=== PATIENT | male | born 1975 | race Caucasian/White ===

== ENCOUNTER 2017-12-28 13:18 | Emergency (ER) | payer OTHER ==
[2017-12-28 16:52] LABS: ADD MAN DIFF? NO
[2017-12-28 16:54] LABS: WHITE BLOOD COUNT 8.4 10^3/ul (4.8-10.8)
[2017-12-28 16:54] LABS: BASOPHILS % 0.4 % (0.0-2.0); EOSINOPHILS # 0.2 10^3/ul (0.0-0.5); HEMATOCRIT 44.6 % (42.0-52.0); HEMOGLOBIN 15.6 g/dl (14.0-18.0); LYMPHOCYTES # 3.4 10^3/ul (0.8-2.9); LYMPHOCYTES % 40.4 % (15.0-51.0); MEAN CORPUSCULAR HEMOGLOBIN 30.4 pg (29.0-33.0); MEAN CORPUSCULAR VOLUME 86.9 fl (82.0-101.0); MEAN PLATELET VOLUME 11.2 fl (7.4-10.4); MONOCYTE # 0.8 10^3/ul (0.3-0.9); MONOCYTES % 9.9 % (0.0-11.0); NEUTROPHIL # 3.9 10^3/ul (1.6-7.5); NEUTROPHILS % 46.9 % (39.0-77.0); PLATELET COUNT 233 10^3/UL (140-415); RED BLOOD COUNT 5.13 10^6/ul (4.70-6.10); RED CELL DISTRIBUTION WIDTH 12.4 % (11.5-14.5)
[2017-12-28] MEDS: SOD CHLORIDE 0.9% 500 ML IV (17:04)
[2017-12-28] MEDS: KETOROLAC 15 MG INJ IV (17:04)
[2017-12-28] MEDS: LORAZEPAM 0.5 MG TAB PO (17:04)
[2017-12-28 17:12] LABS: ALANINE AMINOTRANSFERASE 125 IU/L (13-69); ALBUMIN 4.9 g/dl (3.3-4.9); ALBUMIN/GLOBULIN RATIO 1.44; ALKALINE PHOSPHATASE 83 IU/L (42-121); ASPARTATE AMINO TRANSFERASE 73 IU/L (15-46); BILIRUBIN,INDIRECT 0.1 mg/dl (0-1.1); BILIRUBIN,TOTAL 0.1 mg/dl (0.2-1.3); BLOOD UREA NITROGEN 13 mg/dl (7-20); CALCIUM 9.8 mg/dl (8.4-10.2); CARBON DIOXIDE 28 mmol/L (21-31); CHLORIDE 107 mmol/L (97-110); CREATININE 0.84 mg/dl (0.61-1.24); GLUCOSE 91 mg/dl (70-220); LIPASE 96 U/L (23-300); POTASSIUM 3.6 mmol/L (3.5-5.1); TOTAL PROTEIN 8.3 g/dl (6.1-8.1)
[2017-12-28 17:24] LABS: TROPONIN-I < 0.012 ng/ml (0.00-0.12)
[2017-12-28 17:41] LABS: ANION GAP 15 (8-16); SODIUM 146 mmol/L (135-144)
== END 2017-12-28 17:30 | disposition home or self-care (01) ==
LOC: E/R 13:18
DX: G44.209 Tension-type headache, unspecified, not intractable (principal); I10 Essential (primary) hypertension; F41.9 Anxiety disorder, unspecified
CPT/HCPCS: 36415; 70450; 80053; 83690; 84484; 85025; 93005; 96374; 99285-25

== ENCOUNTER 2017-12-31 07:00 | Emergency (ER) | payer OTHER ==
[2017-12-31] MEDS: KETOROLAC 30 MG INJ IM (08:17)
== END 2017-12-31 08:38 | disposition home or self-care (01) ==
LOC: FTE 07:00
DX: G44.209 Tension-type headache, unspecified, not intractable (principal); I10 Essential (primary) hypertension
CPT/HCPCS: 96372; 99284-25; J1885